=== PATIENT | female | born 1990 | race African-American/Black ===

== ENCOUNTER 2016-09-28 07:48 | Emergency (ER) | payer MEDICAID, OTHER ==
[~2016-09-28] VITALS: Ht 165.1 cm; Wt 65.0 kg
[~2016-09-28 07:48] MED LIST: DOXY100T18 PO; MONT10 PO; ONDA4TAB7 PO; RANI150T PO
[2016-09-28 07:57] VITALS: BP 127/77; PULSE 87; RESP 16; TEMP 97; O2SAT 100
[2016-09-28 08:23] LABS: AUTOMATED NEUTROPHIL # 5.8 TH/MM3 (1.8-7.7); BASOPHIL % 0.6 % (0.0-2.0); EOSINOPHIL % 0.6 % (0.0-4.0); HEMATOCRIT 38.7 % (35.0-46.0); HEMO FLAGS DIFF FINAL; LYMPH % 21.7 % (9.0-44.0); LYMPHOCYTE # 1.7 TH/MM3 (1.0-4.8); MEAN CELL VOLUME 88.4 FL (80.0-100.0); MEAN CORPUSCULAR HEMOGLOBIN 29.8 PG (27.0-34.0); MEAN CORPUSCULAR HGB CONC 33.7 % (32.0-36.0); MONO % 5.5 % (0.0-8.0); NEUT % 71.6 % (16.0-70.0); PLATELET COUNT 249 TH/MM3 (150-450); RED BLOOD COUNT 4.38 MIL/MM3 (4.00-5.30); RED CELL DISTRIBUTION WIDTH 12.5 % (11.6-17.2); WHITE BLOOD COUNT 8.1 TH/MM3 (4.0-11.0)
[2016-09-28 08:34] LABS: BACTERIA, URINE RARE /hpf; BLOOD, URINE NEG (NEG); COMMENT (UR) CULT NOT INDICATED; CULTURE IF INDICATED CULT NOT INDICATED; GLUCOSE,URINE NEG (NEG); KETONE, URINE NEG (NEG); MUCUS URINE FEW /lpf (OCC); NITRITE,URINE NEG (NEG); PH, URINE 8.5 (5.0-8.5); SQUAMOUS EPITHELIAL CELL URINE 5 /hpf (0-5); URINE COLOR YELLOW (YELLW/STRAW)
[2016-09-28 08:45] LABS: BICARBONATE 27.2 MEQ/L (21.0-32.0); POTASSIUM 3.8 MEQ/L (3.5-5.1)
[2016-09-28] MEDS ORDERED: SODIUM CHLORIDE 0.9% FLUSH 5 ML FLUSH IVF PRN (09:15)
[2016-09-28] MEDS ORDERED: ONDANSETRON HCL 4 MG/2 ML VIAL IM ONE (09:15)
[2016-09-28] MEDS ORDERED: SODIUM CHLOR 0.9% 1000 ML INJ 1,000 ML IV ONE ×2 (09:15)
[2016-09-28] MEDS ORDERED: ONDANSETRON HCL 4 MG/2 ML VIAL IV PUSH ONE (09:45)
--- NOTE | 2016-09-28 09:48 | PD ---
HPI Chief Complaint: GI Complaint Time Seen by Provider: 09:05 Travel History International Travel<30 days: No Contact w/Intl Traveler<30days: No Traveled to known affect area: No History of Present Illness HPI Patient is a 26 year old female who presents to emergency room with complaints of abdominal pain. Patient reports that she is around 6 weeks , reports that she has been having lower abdominal cramping since this past weekend. Patient reports that cramping has been intermittent, reports that she has been feeling nauseous, reports that she has not vomited. Patient denies constipation or diarrhea. Patient denies fevers or chills. Patient reports constant pressure to her lower pelvis. Patient denies vaginal bleeding or discharge. Patient with no sick contacts at home. Patient reports that she has had 3 abortions in the past, reports that she does have one living child, reports that she delivered via vaginal delivery at full-term with no complications. Patient denies dysuria, urinary urgency or frequency. PFSH Past Medical History Anxiety: Yes Depression: Yes Diminished Hearing: No GERD: Yes Immunizations Current: No ?: : 2 Para: 1 : 1 Family History Family History: Negative Social History Alcohol Use: Yes (weekly) Tobacco Use: Yes (BLACK AND MILD - ONE per DAY) Substance Use: No Allergies-Medications (Allergen,Severity, Reaction): Coded Allergies: No Known Allergies (Verified , 06/14/16) Reported Meds & Prescriptions Reported Meds & Active Scripts Active Montelukast Sodium 10 Mg Tab 1 Tab PO DAILY Ranitidine 150 mg (Ranitidine HCl) 150 Mg Tab 1 Tab PO BID Ondansetron Odt (Ondansetron HCl) 4 Mg Tab 4 Mg PO Q4H PRN Ranitidine 150 mg (Ranitidine HCl) 150 Mg Tab 1 Tab PO BID Reported Doxycycline Monohydrate 100 Mg Cap 1 Cap PO BID Review of Systems General / Constitutional: No: Fever Eyes: No: Visual changes HENT: No: Headaches Cardiovascular: No: Chest Pain or Discomfort Respiratory: No: Shortness of Breath Gastrointestinal: Positive: Nausea, Abdominal Pain, No: Vomiting, Diarrhea Genitourinary: Positive: Pelvic Pain, No: Urgency, Frequency, Dysuria, Hematuria, Hesitancy, Dribbling, Vaginal Bleeding Musculoskeletal: No: Pain Skin: No Rash Neurologic: No: Weakness Psychiatric: No: Depression Endocrine: No: Polydipsia Hematologic/Lymphatic: No: Easy Bruising Physical Exam Narrative GENERAL: No acute distress, nontoxic SKIN: Warm and dry. HEAD: Atraumatic. Normocephalic. EYES: Pupils equal and round. No scleral icterus. No injection or drainage. ENT: No nasal bleeding or discharge. Mucous membranes pink and moist. NECK: Trachea midline. No JVD. CARDIOVASCULAR: Regular rate and rhythm. No murmur appreciated. RESPIRATORY: No accessory muscle use. Clear to auscultation. Breath sounds equal bilaterally. GASTROINTESTINAL: Abdomen soft, patient with mild tenderness to lower abdomen, with no rebound or guarding on exam. MUSCULOSKELETAL: No obvious deformities. No clubbing. No cyanosis. No edema. NEUROLOGICAL: Awake and alert. No obvious cranial nerve deficits. Motor grossly within normal limits. Normal speech. PSYCHIATRIC: Appropriate mood and affect; insight and judgment normal. Data Data Last Documented VS Vital Signs Date Time Temp Pulse Resp B/P Pulse Ox O2 Delivery O2 Flow Rate FiO2 09/28/16 07:57 97.0 87 16 127/77 100 Orders Complete Blood Count With Diff (09/28/16 07:59) Basic Metabolic Panel (Bmp) (09/28/16 07:59) Urinalysis - C+S If Indicated (09/28/16 07:59) Ed Urine Pregnancytest Poc (09/28/16 07:59) Beta Hcg (Quant/Titer) (09/28/16 09:10) Gc And Chlamydia Pcr (09/28/16 09:10) Us Pelvis (Ques Preg/Ectopic) (09/28/16 ) Iv Access Insert/Monitor (09/28/16 09:10) Sodium Chloride 0.9% Flush (Ns Flush) (09/28/16 09:15) Ondansetron Inj (Zofran Inj) (09/28/16 09:15) Sodium Chlor 0.9% 1000 Ml Inj (Ns 1000 M (09/28/16 09:15) Sodium Chlor 0.9% 1000 Ml Inj (Ns 1000 M (09/28/16 09:15) Ondansetron Inj (Zofran Inj) (09/28/16 09:45) Labs Laboratory Tests Test 09/28/16 09/28/16 08:09 09:25 White Blood Count 8.1 TH/MM3 Red Blood Count 4.38 MIL/MM3 Hemoglobin 13.1 GM/DL Hematocrit 38.7 % Mean Corpuscular Volume 88.4 FL Mean Corpuscular Hemoglobin 29.8 PG Mean Corpuscular Hemoglobin 33.7 % Concent Red Cell Distribution Width 12.5 % Platelet Count 249 TH/MM3 Mean Platelet Volume 8.7 FL Neutrophils (%) (Auto) 71.6 % Lymphocytes (%) (Auto) 21.7 % Monocytes (%) (Auto) 5.5 % Eosinophils (%) (Auto) 0.6 % Basophils (%) (Auto) 0.6 % Neutrophils # (Auto) 5.8 TH/MM3 Lymphocytes # (Auto) 1.7 TH/MM3 Monocytes # (Auto) 0.4 TH/MM3 Eosinophils # (Auto) 0.0 TH/MM3 Basophils # (Auto) 0.0 TH/MM3 CBC Comment DIFF FINAL Differential Comment Urine Color YELLOW Urine Turbidity CLEAR Urine pH 8.5 Urine Specific [place] 1.022 Urine Protein TRACE mg/dL Urine Glucose (UA) NEG mg/dL Urine Ketones NEG mg/dL Urine Occult Blood NEG Urine Nitrite NEG Urine Bilirubin NEG Urine Urobilinogen LESS THAN 2.0 MG/DL Urine Leukocyte Esterase NEG Urine RBC 1 /hpf Urine WBC LESS THAN 1 /hpf Urine Squamous Epithelial 5 /hpf Cells Urine Bacteria RARE /hpf Urine Mucus FEW /lpf Microscopic Urinalysis Comment CULT NOT INDICATED Sodium Level 138 MEQ/L Potassium Level 3.8 MEQ/L Chloride Level 104 MEQ/L Carbon Dioxide Level 27.2 MEQ/L Anion Gap 7 MEQ/L Blood Urea Nitrogen 7 MG/DL Creatinine 0.67 MG/DL Estimat Glomerular Filtration 127 ML/MIN Rate Random Glucose 72 MG/DL Calcium Level 8.6 MG/DL Human Chorionic Gonadotropin, 09760 MIU/ML Quant MDM Medical Decision Making Medical Screen Exam Complete: Yes Emergency Medical Condition: Yes Interpretation(s) Vital Signs Date Time Temp Pulse Resp B/P Pulse Ox O2 Delivery O2 Flow Rate FiO2 09/28/16 07:57 97.0 87 16 127/77 100 Laboratory Tests Test 09/28/16 08:09 White Blood Count 8.1 TH/MM3 (4.0-11.0) Red Blood Count 4.38 MIL/MM3 (4.00-5.30) Hemoglobin 13.1 GM/DL (11.6-15.3) Hematocrit 38.7 % (35.0-46.0) Mean Corpuscular Volume 88.4 FL (80.0-100.0) Mean Corpuscular Hemoglobin 29.8 PG (27.0-34.0) Mean Corpuscular Hemoglobin 33.7 % Concent (32.0-36.0) Red Cell Distribution Width 12.5 % (11.6-17.2) Platelet Count 249 TH/MM3 (150-450) Mean Platelet Volume 8.7 FL (7.0-11.0) Neutrophils (%) (Auto) 71.6 % (16.0-70.0) Lymphocytes (%) (Auto) 21.7 % (9.0-44.0) Monocytes (%) (Auto) 5.5 % (0.0-8.0) Eosinophils (%) (Auto) 0.6 % (0.0-4.0) Basophils (%) (Auto) 0.6 % (0.0-2.0) Neutrophils # (Auto) 5.8 TH/MM3 (1.8-7.7) Lymphocytes # (Auto) 1.7 TH/MM3 (1.0-4.8) Monocytes # (Auto) 0.4 TH/MM3 (0-0.9) Eosinophils # (Auto) 0.0 TH/MM3 (0-0.4) Basophils # (Auto) 0.0 TH/MM3 (0-0.2) CBC Comment DIFF FINAL Differential Comment Urine Color YELLOW (YELLW/STRAW) Urine Turbidity CLEAR (CLEAR) Urine pH 8.5 (5.0-8.5) Urine Specific [place] 1.022 (1.002-1.035) Urine Protein TRACE mg/dL (NEG-TRACE) Urine Glucose (UA) NEG mg/dL (NEG) Urine Ketones NEG mg/dL (NEG) Urine Occult Blood NEG (NEG) Urine Nitrite NEG (NEG) Urine Bilirubin NEG (NEG) Urine Urobilinogen LESS THAN 2.0 MG/DL (LESS THAN 2.0) Urine Leukocyte Esterase NEG (NEG) Urine RBC 1 /hpf (0-3) Urine WBC LESS THAN 1 /hpf (0-5) Urine Squamous Epithelial 5 /hpf (0-5) Cells Urine Bacteria RARE /hpf (NONE) Urine Mucus FEW /lpf (OCC) Microscopic Urinalysis Comment CULT NOT INDICATED Sodium Level 138 MEQ/L (136-145) Potassium Level 3.8 MEQ/L (3.5-5.1) Chloride Level 104 MEQ/L (98-107) Carbon Dioxide Level 27.2 MEQ/L (21.0-32.0) Anion Gap 7 MEQ/L (5-15) Blood Urea Nitrogen 7 MG/DL (7-18) Creatinine 0.67 MG/DL (0.50-1.00) Estimat Glomerular Filtration 127 ML/MIN Rate (>89) Random Glucose 72 MG/DL (74-106) Calcium Level 8.6 MG/DL (8.5-10.1) Last Impressions Pelvis Ultrasound 09/28/16 0000 Signed Impressions: Service Date/Time: September 11:12 - CONCLUSION: There is a single intrauterine gestation identified with estimated age of 6 weeks and 4 days. Heart rate of 127 beats per minute is documented. No acute finding is identified. Pieter Fleming MD Differential Diagnosis Ectopic , spontaneous miscarriage, threatened miscarriage, UTI, gastroenteritis Narrative Course Patient is a 18-year-old female presents to emergency room with complaints of lower abdominal pain. Patient reports that she thinks around 6 weeks , reports that she has not seen her MASH PROCESSING OPERATOR yet. Patient reports lower abdominal cramping since this past weekend. Patient adamantly denies any vaginal discharge or vaginal bleeding. Patient reports intermittent lower abdominal cramping with some nausea but no emesis. Patient with no constipation or diarrhea. Patient well-appearing ER, patient with lower pelvic pain. Patient offered pelvic exam, she defers pelvic exam at this time. Will check hCG Quant and order pelvic ultrasound to eval for possible ectopic . Plan to hydrate patient with IV fluids and give her medications for nausea. Patient reevaluated, patient feeling much better. Patient given a copy of her ultrasound report. Patient understands that she should not perform any sexual activities until seen and cleared by her MASH PROCESSING OPERATOR. CBC & BMP Diagram 09/28/16 08:09 Last Impressions Pelvis Ultrasound 09/28/16 0000 Signed Impressions: Service Date/Time: September 11:12 - CONCLUSION: There is a single intrauterine gestation identified with estimated age of 6 weeks and 4 days. Heart rate of 127 beats per minute is documented. No acute finding is identified. Pieter Fleming MD Diagnosis Primary Impression: Threatened Patient Instructions: General Instructions Additional Instructions: Please follow up with your primary care doctor as well as your commission clerk as soon as possible Return to ER as needed Please refrain from sexual activity until you are seen and cleared by commission clerk Please bring your ultrasound report to doctor's office for follow-up Disposition: 01 DISCHARGE HOME Condition: Jenniffer Jonas DO Sep 28, 2016 09:48
[2016-09-28 10:40] LABS: BETA HCG QUANT 43364 MIU/ML (0-5)
--- NOTE | 2016-09-28 13:16 | RADRPT ---
EXAM DATE/TIME: 09/28/2016 11:12 [facility] COMPARISON: No previous studies available for comparison. INDICATIONS : Pelvic pain with . LAB(S): Beta-hC,364 MEDICAL HISTORY : . Gastroesophageal reflux disease. SURGICAL HISTORY : None. ENCOUNTER: Initial ACUITY: 1 day PAIN SCORE: 6/10 LOCATION: Bilateral pelvis MEASUREMENTS: UTERUS: 12.0 x 5.5 x 6.4 cm ENDOMETRIAL STRIPE: 13 mm RIGHT OVARY: 3.9 x 2.1 x 3.1 cm LEFT OVARY: 3.1 x 1.9 x 2.1 cm FINDINGS: UTERUS: There is a gestational sac within the superior aspect of the endometrial cavity. It measures approxim ately 2.6 x 0.9 x 2.2 cm. It contains a yolk sac and embryo with crown-rump length measurement of 0.6 8 cm consistent with a gestational age of 6 weeks and 4 days. M-mode Doppler documents a heart rate of 127 beats per minute. RIGHT OVARY: Ovary contains no mass or significant cystic lesion. There is a simple cystic lesion in the right ov harper measuring 19 mm. LEFT OVARY: Ovary contains no mass or significant cystic lesion. MISCELLANEOUS: No free fluid. CONCLUSION: There is a single intrauterine gestation identified with estimated age of 6 weeks and 4 days. Heart r ate of 127 beats per minute is documented. No acute finding is identified. Pieter Fleming MD on September 28, 2016 at 13:12 Board Certified Radiologist. This report was verified electronically.
[2016-09-29 03:19] LABS: CHLAMYDIA PCR NOT DETECTED (NOT DETECT); NEISSERIA PCR NOT DETECTED (NOT DETECT)
== END 2016-09-28 14:56 | disposition home or self-care (01) ==
LOC: NEPE 07:48
DX: O20.0 Threatened abortion (principal); Z3A.01 Less than 8 weeks gestation of pregnancy
CPT/HCPCS: 76700; 80048; 81001; 84702; 84703; 85025; 87491; 87591; 96361; 96374; 99284; J2405; J7030

== ENCOUNTER 2016-10-06 09:40 | Emergency (ER) | payer MEDICAID, OTHER ==
[~2016-10-06] VITALS: Ht 165.1 cm; Wt 60.0 kg
[2016-10-06 09:41] VITALS: BP 130/73; PULSE 80; RESP 15; TEMP 98.2; O2SAT 99
[2016-10-06 10:38] LABS: AUTOMATED NEUTROPHIL # 6.9 TH/MM3 (1.8-7.7); BASOPHIL % 0.3 % (0.0-2.0); EOSINOPHIL % 0.4 % (0.0-4.0); HEMATOCRIT 37.7 % (35.0-46.0); HEMO FLAGS DIFF FINAL; LYMPH % 15.3 % (9.0-44.0); LYMPHOCYTE # 1.3 TH/MM3 (1.0-4.8); MEAN CELL VOLUME 88.5 FL (80.0-100.0); MEAN CORPUSCULAR HEMOGLOBIN 30.2 PG (27.0-34.0); MEAN CORPUSCULAR HGB CONC 34.1 % (32.0-36.0); MONO % 4.3 % (0.0-8.0); NEUT % 79.7 % (16.0-70.0); PLATELET COUNT 233 TH/MM3 (150-450); RED BLOOD COUNT 4.26 MIL/MM3 (4.00-5.30); RED CELL DISTRIBUTION WIDTH 12.3 % (11.6-17.2); WHITE BLOOD COUNT 8.7 TH/MM3 (4.0-11.0)
[2016-10-06 11:15] LABS: BETA HCG QUANT 120602 MIU/ML (0-5)
[2016-10-06] MEDS ORDERED: ZANTTAB9 PO (11:58)
[2016-10-06 12:03] VITALS: BP 107/64; PULSE 79; RESP 16; TEMP 98.4; O2SAT 99
[2016-10-06 13:14] LABS: BACTERIA, URINE RARE /hpf; BLOOD, URINE NEG (NEG); GLUCOSE,URINE NEG (NEG); KETONE, URINE NEG (NEG); MUCUS URINE FEW /lpf (OCC); NITRITE,URINE NEG (NEG); PH, URINE 6.5 (5.0-8.5); SQUAMOUS EPITHELIAL CELL URINE 1 /hpf (0-5); URINE COLOR YELLOW (YELLW/STRAW)
[2016-10-06 13:17] LABS: COMMENT (UR) CULT NOT INDICATED; CULTURE IF INDICATED CULT NOT INDICATED
--- NOTE | 2016-10-06 13:51 | PD ---
HPI Chief Complaint: Related Problem Time Seen by Provider: 11:56 Travel History International Travel<30 days: No Contact w/Intl Traveler<30days: No Traveled to known affect area: No History of Present Illness HPI 26-year-old female came to the emergency room with history of abdominal cramping and spotting. She is 8 weeks . Patient was in the emergency room almost a week ago with history of cramping and had ultrasound done. She was told that the ULTRASOUND showed fetus in the uterus. She was supposed to follow up with OB and she has an appointment on the . But soon after she was discharged she started spotting. She did have intercourse once during this time. Vital signs are otherwise stable. No vomiting or diarrhea. No history of fever or chills. PFSH Past Medical History Narrative Medical List of her past medical history as reviewed from the nursing note. Anxiety: Yes Depression: Yes Diminished Hearing: No GERD: Yes Psychiatric: Yes Immunizations Current: No Thyroid Disease: Yes Influenza Vaccination: Yes ?: LMP: 08/13/16 : 2 Para: 1 : 1 Past Surgical History Surgical History: No Previous Surgery Social History Alcohol Use: Yes (OCASSIONALLY) Tobacco Use: No Substance Use: No Allergies-Medications (Allergen,Severity, Reaction): Coded Allergies: No Known Allergies (Verified , 10/06/16) Comments No known drug allergies. Reported Meds & Prescriptions Reported Meds & Active Scripts Active Reported Zantac 75 (Ranitidine HCl) 75 Mg Tab 75 Mg PO BID Take 30 to 60 minutes before eating food or drinking beverages that cause heartburn. Narrative Medication List of his home medications reviewed from the nursing note. Review of Systems Except as stated in HPI: all other systems reviewed are Neg Physical Exam Narrative GENERAL: Awake, alert, no obvious distress SKIN: Warm and dry. HEAD: Atraumatic. Normocephalic. EYES: Pupils equal and round. No scleral icterus. No injection or drainage. ENT: No nasal bleeding or discharge. Mucous membranes pink and moist. NECK: Trachea midline. No JVD. CARDIOVASCULAR: Regular rate and rhythm. No murmur appreciated. RESPIRATORY: No accessory muscle use. Clear to auscultation. Breath sounds equal bilaterally. GASTROINTESTINAL: Abdomen soft, non-tender, nondistended. Hepatic and splenic margins not palpable. MUSCULOSKELETAL: No obvious deformities. No clubbing. No cyanosis. No edema. NEUROLOGICAL: Awake and alert. No obvious cranial nerve deficits. Motor grossly within normal limits. Normal speech. PSYCHIATRIC: Appropriate mood and affect; insight and judgment normal. Data Data Last Documented VS Vital Signs Date Time Temp Pulse Resp B/P Pulse Ox O2 Delivery O2 Flow Rate FiO2 10/06/16 13:55 97.8 76 17 110/81 99 10/06/16 12:03 Room Air Orders Complete Blood Count With Diff (10/06/16 09:47) Beta Hcg (Quant/Titer) (10/06/16 09:47) Urinalysis - C+S If Indicated (10/06/16 12:35) Ed Poc Ultrasound (10/06/16 ) Labs Laboratory Tests Test 10/06/16 10/06/16 10:26 12:48 White Blood Count 8.7 TH/MM3 Red Blood Count 4.26 MIL/MM3 Hemoglobin 12.8 GM/DL Hematocrit 37.7 % Mean Corpuscular Volume 88.5 FL Mean Corpuscular Hemoglobin 30.2 PG Mean Corpuscular Hemoglobin 34.1 % Concent Red Cell Distribution Width 12.3 % Platelet Count 233 TH/MM3 Mean Platelet Volume 8.5 FL Neutrophils (%) (Auto) 79.7 % Lymphocytes (%) (Auto) 15.3 % Monocytes (%) (Auto) 4.3 % Eosinophils (%) (Auto) 0.4 % Basophils (%) (Auto) 0.3 % Neutrophils # (Auto) 6.9 TH/MM3 Lymphocytes # (Auto) 1.3 TH/MM3 Monocytes # (Auto) 0.4 TH/MM3 Eosinophils # (Auto) 0.0 TH/MM3 Basophils # (Auto) 0.0 TH/MM3 CBC Comment DIFF FINAL Differential Comment Human Chorionic Gonadotropin, 800077 MIU/ML Quant Urine Color YELLOW Urine Turbidity CLEAR Urine pH 6.5 Urine Specific [place] 1.020 Urine Protein NEG mg/dL Urine Glucose (UA) NEG mg/dL Urine Ketones NEG mg/dL Urine Occult Blood NEG Urine Nitrite NEG Urine Bilirubin NEG Urine Urobilinogen LESS THAN 2.0 MG/DL Urine Leukocyte Esterase NEG Urine WBC LESS THAN 1 /hpf Urine Squamous Epithelial 1 /hpf Cells Urine Bacteria RARE /hpf Urine Mucus FEW /lpf Microscopic Urinalysis Comment CULT NOT INDICATED MDM Medical Decision Making Medical Screen Exam Complete: Yes Emergency Medical Condition: Yes Medical Record Reviewed: Yes Differential Diagnosis Threatened , UTI Narrative Course 1:48 PM patient's beta-hCG seem satisfactorily. CBC was within normal limit. UA was within normal limit. Ultrasound showed a of 7 weeks 6 days and heart rate of 158 bpm. I will discharge this patient home. I've asked her to come back in 48 hours to get a repeat beta-hCG. Procedures Procedure Narrative Emergency Department Pelvic ultrasound was performed with patient consent. The curvilinear probe was used in the transverse and sagittal views within the suprapubic region revealing single, live intrauterine . heart rate was 158 bpm. See this measures 7 weeks 6 days by crown rump length. EKG Prior to Arrival: No Diagnosis Primary Impression: Threatened Referrals: Primary Care Physician 2 days Additional Instructions: Please return to the ER in 48 hours to get the repeat blood work for beta hCG. No vaginal intercourse, no tampons or douching or nothing in the vagina until the symptoms subside. Med/Other Pt SpecificInfo: No Change to Meds Disposition: 01 DISCHARGE HOME Condition: Stable See Emery MD Oct 06, 2016 13:51
[2016-10-06 13:55] VITALS: BP 110/81; TEMP 97.8
== END 2016-10-06 13:55 | disposition home or self-care (01) ==
LOC: NEPC 09:40
DX: O20.0 Threatened abortion (principal)
CPT/HCPCS: 81001; 84702; 85025; 99284